=== PATIENT | male | born 1990 | race Caucasian/White ===

== ENCOUNTER 2022-02-21 12:31 | Emergency (ER) | payer OTHER, MEDICAID, SELFPAY ==
[2022-02-21 13:06] VITALS: BP 142/72; PULSE 80; RESP 15; TEMP 36.2; O2SAT 99; BMI 32.1
--- NOTE | 2022-02-21 13:08 | DI.RAD.S_ITS ---
PROCEDURE: XR SACRUM COCCYX MIN 2V INDICATIONS: sledding injury,low back pain TECHNIQUE: 3 views of the sacrum and coccyx acquired. COMPARISON: None. FINDINGS: Bones: No fractures or dislocations. No suspicious bony lesions. Soft tissues: Visualized bowel gas pattern is normal. No suspicious soft tissue densities. IMPRESSION: No evidence acute bony abnormality of the sacrum and coccyx. If clinical suspicion and/or symptoms persist, further assessment with repeat plain films, or advanced imaging (e.g., CT, MRI, or bone scan) may be helpful for further assessment. Dictated by: James Wheeler M.D. on 02/21/2022 at 13:28 Approved by: James Wheeler M.D. on 02/21/2022 at 13:29
--- NOTE | 2022-02-21 14:04 | ED_ITS ---
HPI - Back Pain/Injury <Tessa Arias PA-C - Last Filed: 02/21/22 17:35> General Chief Complaint: Back Pain/Injury Stated Complaint: back pain x7 increasing Time Seen by Provider: 02/21/22 14:01 Source: patient History of Present Illness HPI Narrative: Is a 31-year-old male who presents with concern for low back pain. He states that he injured his low back a month ago when he was lifting a heavy rubber doing a full of water this mostly resolved but then 5 days ago he was sledding down a hill with his son in his lap and they went over a bump? caught air? he states that when they landed he started having low back pain. This has continued for the past 5 days. He saw providers at a walk-in clinic in [place] and had lumbar x-rays done at that time he was given a muscle relaxer and also took some of his own hydrocodone that he had from a previous procedure. He is also tried Tylenol and ibuprofen and does not feel like anything has been working. He states the pain is an aching pain and sometimes feels like he is getting twinges into his right buttock. He denies any numbness, tingling, weakness in his lower extremities, also denies saddle paresthesia, feels his gait is slightly affected but is able to ambulate okay. He also endorses some slight discomfort in his groin on both sides along the crease where his leg meets his torso. Denies any other complaints or concerns. Related Data Previous Rx's Medication Instructions Recorded lidocaine 5 % topical patch 1 patch topical DAILY #10 ea 02/21/22 Allergies Allergy/AdvReac Type Severity Reaction Status Date / Time Penicillins Allergy Verified 02/21/22 13:05 Review of Systems <Tessa Arias PA-C - Last Filed: 02/21/22 17:35> Review of Systems Narrative: Unremarkable except as noted in the HPI Patient History <Tessa Arias PA-C - Last Filed: 02/21/22 17:35> Social History Smoking Status: Unknown if ever smoked Smoking Status: Unknown if ever smoked alcohol intake frequency: holidays/special occasions only Substance Use Type: does not use Exam <Tessa Arias PA-C - Last Filed: 02/21/22 17:35> Narrative Exam Narrative: GENERAL: year old patient appears stated age. Well-developed patient, in mild distress. HEAD: Atraumatic. Normocephalic. EYES: Pupils equal round and reactive. Extraocular motions intact. No scleral icterus. No injection or drainage. ENT: Nose without bleeding, purulent drainage. Airway patent. NECK: Trachea midline. Non tender CARDIOVASCULAR: Regular rate and rhythm without murmurs, gallops, or rubs. RESPIRATORY: Clear to auscultation. Breath sounds equal bilaterally. No wheezes, rales, or rhonchi. GASTROINTESTINAL: Abdomen soft, non-tender, nondistended. EXTREMITIES: Strength is 5/5 in the lower extremities with flexion and extension. No edema or joint tenderness. BACK: Patient has some increased pain with forward bending at the waist. No increased pain with extension of the back at the waist. There is midline tenderness at L4 through L6, there is tenderness laterally over paraspinal muscles in this area as well. There is some tenderness of the SI junction on the right. Additionally there is some tenderness with palpation over the right mid buttock. Otherwise Nontender without deformity or crepitance. No flank tenderness. NEURO: AOx3. SKIN: No rash or erythema of visible areas Initial Vital Signs Initial Vital Signs: Vital Signs Temperature 97.2 F L 02/21/22 13:06 Pulse Rate 80 02/21/22 13:06 Respiratory Rate 15 02/21/22 13:06 Blood Pressure 142/72 H 02/21/22 13:06 Pulse Oximetry 99 02/21/22 13:06 Oxygen Delivery Method 02/21/22 13:06 <Fely Hou DO - Last Filed: 02/27/22 19:06> Initial Vital Signs Initial Vital Signs: Vital Signs Temperature 97.2 F L 02/21/22 13:06 Pulse Rate 80 02/21/22 13:06 Respiratory Rate 15 02/21/22 13:06 Blood Pressure 142/72 H 02/21/22 13:06 Pulse Oximetry 99 02/21/22 13:06 Oxygen Delivery Method 02/21/22 13:06 Course <Tessa Arias PA-C - Last Filed: 02/21/22 17:35> Orders Ordered: Discontinued Medications Acetaminophen (Acetaminophen 325 Mg Tablet) 650 mg PO NOW ONE Stop: 02/21/22 15:13 Last Admin: 02/21/22 15:51 Dose: 650 mg Documented By: MLM Ibuprofen (Ibuprofen 400 Mg Tablet) 400 mg PO NOW ONE Stop: 02/21/22 15:13 Last Admin: 02/21/22 15:33 Dose: Not Given Documented By: MLM Ketorolac Tromethamine (Ketorolac 30 Mg/Ml Vial) 30 mg IM NOW ONE Stop: 02/21/22 15:46 Last Admin: 02/21/22 15:51 Dose: 30 mg Documented By: MLM Vital Signs Vital signs: Vital Signs - 8 hr 02/21/22 13:06 Temperature 97.2 F L Pulse Rate 80 Respiratory Rate 15 Blood Pressure 142/72 H Pulse Oximetry 99 Oxygen Delivery Method Room Air <Fely Hou DO - Last Filed: 02/27/22 19:06> Orders Ordered: Discontinued Medications Acetaminophen (Acetaminophen 325 Mg Tablet) 650 mg PO NOW ONE Stop: 02/21/22 15:13 Last Admin: 02/21/22 15:51 Dose: 650 mg Documented By: MLM Ibuprofen (Ibuprofen 400 Mg Tablet) 400 mg PO NOW ONE Stop: 02/21/22 15:13 Last Admin: 02/21/22 15:33 Dose: Not Given Documented By: MLM Ketorolac Tromethamine (Ketorolac 30 Mg/Ml Vial) 30 mg IM NOW ONE Stop: 02/21/22 15:46 Last Admin: 02/21/22 15:51 Dose: 30 mg Documented By: MLM Vital Signs Vital signs: Vital Signs - 8 hr 02/21/22 13:06 Temperature 97.2 F L Pulse Rate 80 Respiratory Rate 15 Blood Pressure 142/72 H Pulse Oximetry 99 Oxygen Delivery Method Room Air MDM - Back Pain/Injury <Tessa Arias PA-C - Last Filed: 02/21/22 17:35> Differential Diagnosis Differential diagnosis: Likely lumbar radiculopathy, sciatica and strain of lumbar region Medical Records Medical records narrative: This is a 31-year-old male who presents with concern for low back pain that is aching and occasionally twinging into his right buttock. Sustained after a sledding injury 5 days ago. Initial x-rays of sacrum and coccyx are unremarkable. After exam patient is re-x-ray with lumbar x-rays. Also reported having lumbar x-rays done 3 days ago at a walk-in clinic. Again lumbar x-rays are unremarkable. Suspect that the patient has strain of his lower back. He has had difficulty getting his pain controlled. We will try a few different options today he is given Toradol in clinic, do not feel that stronger pain medicines or opioids are warranted however we will try topical lidocaine for him. And a different muscle relaxer. Also referral to physical therapy. Imaging Data lumbar sacrum xray: Radiologist's Impression: [address] [address] XRay Report Signed Patient: Chato Tripathi MR#: [id number] : 1990 Acct:[id number] Age/Sex: 31 / M Date of Service: 02/21/22 Loc: ED Accession Number: [id number] ?? Procedure: XR sacrum coccyx min 2V Ordering Provider: Fely Hou D.O. PROCEDURE:? XR SACRUM COCCYX MIN 2V ? INDICATIONS:? sledding injury,low back pain ? TECHNIQUE:? 3 views of the sacrum and coccyx acquired.? ? COMPARISON:? None. ? FINDINGS:? ? Bones:? No fractures or dislocations.? No suspicious bony lesions.? ? Soft tissues:? Visualized bowel gas pattern is normal.? No suspicious soft tissue densities.? ? IMPRESSION:? No evidence acute bony abnormality of the sacrum and coccyx. ? If clinical suspicion and/or symptoms persist, further assessment with repeat plain films, or advanced imaging (e.g., CT, MRI, or bone scan) may be helpful for further assessment. ? Dictated by: James Wheeler M.D. on 02/21/2022 at 13:28 ? ? Approved by: James Wheeler M.D. on 02/21/2022 at 13:29?? Discharge Plan Departure Patient Disposition: Home Clinical Impression: Strain of lumbar region, Low back pain Instructions: DI for Back Spasm, DI for Back Strain or Sprain Activity Restrictions/Additional Instructions: Thank you for letting us be part of her care in the emergency department today. We did x-ray UR low back including your lumbar spine and your sacrum and tailbone area. We are not seeing any abnormalities on x-rays. Occasionally x- rays do miss hairline fractures or injuries. Typically back pain such as yours may take up to 3 weeks or so to resolve. However if it is not resolving in this time and or is not improving with treatments that we try today it is definitely reasonable to get re-evaluated. And you can talk to your primary care provider about getting more advanced imaging if your pain persists past this time. . If you do develop any new or concerning symptoms such as weakness in your legs numbness or tingling or numbness or tingling of your groin area please make sure you get re-evaluated. Otherwise as we discussed I am prescribing topical lidocaine patches that you can leave on for 12 hours at a time, I am referring her to physical therapy given that he had a back injury about a month ago as well and this happened on top of that, I also recommend alternating Tylenol and ibuprofen, alternating heat and ice if that feels good to you. There is no evidence of an emergent or life threatening illness at this time, but follow up with your doctor in 1-2 days is recommended nonetheless to continue to rule out serious underlying causes of your symptoms. Please call the office for an appointment. Please return to the Emergency Department for any worsening or persistent symptoms. Please take medications as directed. Prescriptions: New lidocaine 5 % adhesive patch,medicated 1 patch topical DAILY Qty: 10 2RF Rx Instructions: leave on most painful area for up to 12 hrs Referrals: Kimberlee Gonsales, PT [Physical Therapist] - Visit Report Forms: Patient Portal/API <Fely Hou DO - Last Filed: 02/27/22 19:06> [facility] Attending Jakeature Attestation: I was immediately available in the department for consultation. Documentation has been reviewed.
--- NOTE | 2022-02-21 15:12 | DI.RAD.S_ITS ---
PROCEDURE: XR LUMBAR SPINE 2-3V INDICATIONS: low back pain TECHNIQUE: 3 views of the lumbar spine were acquired. COMPARISON: None. FINDINGS: Bones: 5 [id number] vertebrae are present. There is vertebra of the lumbar spine centered at L3-4. No acute vertebral body compression fractures. There are degenerative changes of the mid and lower lumbar spine with associated facet arthropathy. Findings are most pronounced from L3-4 through L5-S1. No suspicious bony lesions. Soft tissues: Overlying bowel gas pattern is normal. No suspicious soft tissue calcifications. IMPRESSION: Lumbar spine without acute osseous abnormalities. Dextrocurvature of the lumbar spine which may be in part due to positioning and/or multiple spasms. Mid and lower lumbar spondylosis. Dictated by: Adrián Merritt M.D. on 02/21/2022 at 15:59 Approved by: Adrián Merritt M.D. on 02/21/2022 at 16:01
[2022-02-21] MEDS: KETOROLAC 30 MG/ML VIAL IM (15:51)
[2022-02-21] MEDS: ACETAMINOPHEN 325 MG TABLET 650 MG PO (15:51)
== END 2022-02-21 17:13 | disposition home or self-care (01) ==
PROVIDERS: Emergency Provider Student in an Organized Health Care Education/Training Program
DX: S39.012A Strain of muscle, fascia and tendon of lower back, initial encounter (principal); Y93.23 Activity, snow (alpine) (downhill) skiing, snowboarding, sledding, tobogganing and snow tubing
CPT/HCPCS: 72100; 72220; 96372; 99283; 99284; J1885